=== PATIENT | male | born 1995 | race Two or more races ===

== ENCOUNTER 2020-10-05 07:23 | Emergency (ER) | payer SELFPAY ==
[~2020-10-05] VITALS: Ht 185.4 cm; Wt 108.7 kg
--- NOTE | 2020-10-05 07:58 | ED.ADGEN ---
General Adult EDM: Chief Complaint: ABDOMINAL PAIN HPI: HPI: Patient is a 25 year old male coming in for right-sided abdominal pain. Patient states that the pain started last night. Has had one episode of vomiting. Denies any diarrhea. States the pain is sharp and worse with movement. No other past medical history. Review of Systems: Review of Systems: All other systems within normal limits except for as noted in the HPI Current Medications: Current Medications Medications (Trade) Dose Ordered Sig/Radha Start Time Stop Time Status Last Admin Dose Admin Fentanyl Citrate (Fentanyl 2ml Vial) 75 mcg 1X ONCE 10/05/20 09:15 10/05/20 09:16 DC 10/05/20 09:24 75 MCG Info (CONTRAST GIVEN -- Rx MONITORING) 1 each PRN DAILY PRN 10/05/20 09:00 10/07/20 08:59 Iohexol (Omnipaque 300 Mg/ml) 75 ml 1X ONCE 10/05/20 09:00 10/05/20 09:01 DC 10/05/20 09:04 75 ML Ketorolac Tromethamine (Toradol 15mg Vial) 15 mg 1X ONCE 10/05/20 09:15 10/05/20 09:16 DC 10/05/20 09:25 15 MG Ondansetron HCl (Zofran) 4 mg 1X ONCE 10/05/20 09:15 10/05/20 09:16 DC 10/05/20 09:25 4 MG Allergies: Allergies: Allergies Coded Allergies Type Severity Reaction Last Updated Verified Penicillins Allergy Unknown 10/05/20 Yes Physical Exam: PE: Constitutional: Well developed, well nourished, no acute distress, non-toxic appearance. [] HENT: Normocephalic, atraumatic, bilateral external ears normal, nose normal. [] Eyes: PERRLA, conjunctiva normal, no discharge. [] Neck: No rigidity, supple, no stridor. [] Cardiovascular: Regular rate and rhythm, brisk cap refill [] Lungs & Thorax: Non labored symmetric respirations, no tachypnea or respiratory distress [] Abdomen: Soft, nondistended, right upper quadrant tenderness, guarding in right lower quadrant. Skin: Warm, dry, no erythema, no rash. [] Back: Unremarkable Extremities: No deformities, range of motion grossly intact, no lower extremity edema [] Neurologic: Alert and oriented X 3, no focal deficits noted. [] Psychologic: Affect normal, judgement normal, mood normal. [] Current Patient Data: Labs: Laboratory Tests Test 10/05/20 07:35 10/05/20 07:48 Urine Collection Type Unknown Urine Color Daniella Urine Clarity Clear Urine pH 6.0 (<5.0-8.0) Urine Specific [place] >=1.030 (1.000-1.030) Urine Protein Negative mg/dL (NEG-TRACE) Urine Glucose (UA) Negative mg/dL (NEG) Urine Ketones (Stick) Trace mg/dL (NEG) Urine Blood Negative (NEG) Urine Nitrite Negative (NEG) Urine Bilirubin Negative (NEG) Urine Urobilinogen Dipstick 0.2 mg/dL (0.2 mg/dL) Urine Leukocyte Esterase Negative (NEG) Urine RBC 0 /HPF (0-2) Urine WBC Occ /HPF (0-4) Urine Bacteria Few /HPF (0-FEW) Urine Mucus Marked /LPF White Blood Count 9.8 x10^3/uL (4.0-11.0) Red Blood Count 5.05 x10^6/uL (4.30-5.70) Hemoglobin 16.1 g/dL (13.0-17.5) Hematocrit 46.1 % (39.0-53.0) Mean Corpuscular Volume 91 fL (79-100) Mean Corpuscular Hemoglobin 32 pg (25-35) Mean Corpuscular Hemoglobin Concent 35 g/dL (31-37) Red Cell Distribution Width 12.9 % (11.5-14.5) Platelet Count 201 x10^3/uL (140-400) Neutrophils (%) (Auto) 71 % (31-73) Lymphocytes (%) (Auto) 19 % (24-48) L Monocytes (%) (Auto) 8 % (0-9) Eosinophils (%) (Auto) 2 % (0-3) Basophils (%) (Auto) 1 % (0-3) Neutrophils # (Auto) 6.9 x10^3/uL (1.8-7.7) Lymphocytes # (Auto) 1.9 x10^3/uL (1.0-4.8) Monocytes # (Auto) 0.8 x10^3/uL (0.0-1.1) Eosinophils # (Auto) 0.2 x10^3/uL (0.0-0.7) Basophils # (Auto) 0.1 x10^3/uL (0.0-0.2) Sodium Level 141 mmol/L (136-145) Potassium Level 4.0 mmol/L (3.5-5.1) Chloride Level 104 mmol/L (98-107) Carbon Dioxide Level 28 mmol/L (21-32) Anion Gap 9 (6-14) Blood Urea Nitrogen 16 mg/dL (8-26) Creatinine 1.0 mg/dL (0.7-1.3) Estimated GFR (Cockcroft-Gault) 92.6 BUN/Creatinine Ratio 16 (6-20) Glucose Level 110 mg/dL (70-99) H Calcium Level 9.3 mg/dL (8.5-10.1) Total Bilirubin 0.8 mg/dL (0.2-1.0) Aspartate Amino Transferase (AST) 47 U/L (15-37) H Alanine Aminotransferase (ALT) 96 U/L (16-63) H Alkaline Phosphatase 85 U/L (46-116) Total Protein 7.4 g/dL (6.4-8.2) Albumin 4.3 g/dL (3.4-5.0) Albumin/Globulin Ratio 1.4 (1.0-1.7) Lipase 54 U/L (73-393) L Laboratory Tests 10/05/20 07:48 Laboratory Tests 10/05/20 07:48 Vital Signs: Vital Signs Date Time Temp Pulse Resp B/P (MAP) Pulse Ox O2 Delivery O2 Flow Rate FiO2 10/05/20 09:24 98 Room Air 10/05/20 08:24 18 10/05/20 07:40 98.0 95 156/87 (110) 98.0 EKG: EKG: [] Heart Score: C/O Chest Pain: No Risk Factors: Risk Factors: DM, Current or recent (<one month) smoker, HTN, HLP, family history of CAD, obesity. Risk Scores: Score 0 - 3: 2.5% MACE over next 6 weeks - Discharge Home Score 4 - 6: 20.3% MACE over next 6 weeks - Admit for Clinical Observation Score 7 - 10: 72.7% MACE over next 6 weeks - Early Invasive Strategies Radiology/Procedures: Radiology/Procedures: [facility] [address] [place] [address] IMAGING REPORT Signed PATIENT: FRANCISCO HAHNUNT: [id number] : 1995 LOCATION: ER AGE: 25 SEX: M EXAM STATUS: REG ER ORD. PHYSICIAN: ANDREWS IRVIN MD REASON: right abd pain PROCEDURE: CT ABD PELV W/ IV CONTRST ONLY EXAM: Abdomen and pelvis CT with intravenous contrast. HISTORY: Pain. TECHNIQUE: Computed tomographic images of the abdomen and pelvis were obtained following the administration of intravenous contrast. Multiplanar reformatting was performed. *One or more of the following individualized dose reduction techniques were utilized for this examination: 1. Automated exposure control. 2. Adjustment of the mA and/or kV according to patient size. 3. Use of iterative reconstruction technique. COMPARISON: None. FINDINGS: Evaluation of the lower thorax demonstrates posterior dependent atelectasis. There is no infiltrate or pleural effusion. There is hepatic steatosis. The gallbladder, pancreas, spleen, adrenal glands and kidneys are unremarkable. There is no appendicitis. There is no bowel obstruction. There is no abnormal bowel wall thickening. The bladder is unremarkable. The aorta is normal in caliber. There is no lymphadenopathy. There is no suspicious osseous lesion. There is a transitional lumbosacral segment, considered a sacralized L5 segment given the number of nonrib-bearing vertebral segments. Based on this numbering system, there is grade 1 byron listhesis of L4 on L5. There is a posterior central disc protrusion superimposed on a disc bulge at this level, contributing to left foraminal and central canal stenosis. There are pars interarticularis defects at L2. IMPRESSION: No acute abdominal or pelvic finding. Electronically signed by: Sridevi Saunders MD (10/05/2020 9:39 AM) [id number] DICTATED and SIGNED BY: SRIDEVI SAUNDERS MD DATE: 10/05/20 [id number] [] Course & Med Decision Making: Course & Med Decision Making Pertinent Labs and Imaging studies reviewed. (See chart for details) [] Dragon Disclaimer: Dragmera Disclaimer: This electronic medical record was generated, in whole or in part, using a voice recognition dictation system. Departure Departure Impression: Primary Impression: RLQ abdominal pain Disposition: HOME / SELF CARE / HOMELESS Condition: STABLE Patient Instructions: Abdominal Pain, Possible Early Appendicitis ANDREWS IRVIN MD Oct 05, 2020 07:58
[2020-10-05] MEDS ORDERED: ONDANSETRON PF 4 MG/2 ML VIAL. IVP ONE ×2 (08:00→09:15)
[2020-10-05] MEDS ORDERED: fentaNYL PF VIAL 100 MCG/2 ML VIAL IVP ONE ×2 (08:00→09:15)
[2020-10-05 08:05] LABS: BASO # 0.1 x10^3/uL (0.0-0.2); BASO % 1 % (0-3); EOS # 0.2 x10^3/uL (0.0-0.7); EOS % 2 % (0-3); HEMATOCRIT 46.1 % (39.0-53.0); HEMOGLOBIN 16.1 g/dL (13.0-17.5); LYMPH # 1.9 x10^3/uL (1.0-4.8); LYMPH % 19 % (24-48); MEAN CORPUSCULAR HEMOGLOBIN 32 pg (25-35); MEAN CORPUSCULAR HGB CONC 35 g/dL (31-37); MEAN CORPUSCULAR VOLUME 91 fL (79-100); MONO # 0.8 x10^3/uL (0.0-1.1); MONO % 8 % (0-9); NEUT # 6.9 x10^3/uL (1.8-7.7); NEUT % 71 % (31-73); PLATELET COUNT 201 x10^3/uL (140-400); RED BLOOD COUNT 5.05 x10^6/uL (4.30-5.70); RED CELL DISTRIBUTION WIDTH 12.9 % (11.5-14.5); WHITE BLOOD COUNT 9.8 x10^3/uL (4.0-11.0)
[2020-10-05 08:06] LABS: BILIRUBIN,URINE NEGATIVE (NEG); CLARITY,URINE CLEAR; COLOR,URINE AMBER; NITRITE,URINE NEGATIVE (NEG); PROTEIN,URINE NEGATIVE (NEG-TRACE); UROBILINOGEN,URINE 0.2 mg/dL (0.2 mg/dL)
[2020-10-05 08:14] LABS: BACTERIA,URINE FEW /HPF (0-FEW); RBC,URINE 0 /HPF (0-2); WBC,URINE OCC /HPF (0-4)
[2020-10-05 08:18] LABS: CALCIUM 9.3 mg/dL (8.5-10.1); GFR 92.6
[2020-10-05 08:23] LABS: ALBUMIN 4.3 g/dL (3.4-5.0); ALBUMIN/GLOBULIN RATIO 1.4 (1.0-1.7); TOTAL BILIRUBIN 0.8 mg/dL (0.2-1.0); TOTAL PROTEIN 7.4 g/dL (6.4-8.2)
[2020-10-05] MEDS ORDERED: IOHEXOL 300 MG/ML 100ML VIAL. IV ONE (09:00)
[2020-10-05] MEDS ORDERED: CONTRAST GIVEN. MC PRN (09:00)
[2020-10-05] MEDS ORDERED: KETOROLAC 15 MG/ML VIAL. IVP ONE (09:15)
--- NOTE | 2020-10-05 09:41 | RAD ---
EXAM: Abdomen and pelvis CT with intravenous contrast. HISTORY: Pain. TECHNIQUE: Computed tomographic images of the abdomen and pelvis were obtained following the administ ration of intravenous contrast. Multiplanar reformatting was performed. *One or more of the following individualized dose reduction techniques were utilized for this examina tion: 1. Automated exposure control. 2. Adjustment of the mA and/or kV according to patient size. 3. Use of iterative reconstruction technique. COMPARISON: None. FINDINGS: Evaluation of the lower thorax demonstrates posterior dependent atelectasis. There is no in filtrate or pleural effusion. There is hepatic steatosis. The gallbladder, pancreas, spleen, adrenal glands and kidneys are unremarkable. There is no appendicitis. There is no bowel obstruction. There i s no abnormal bowel wall thickening. The bladder is unremarkable. The aorta is normal in caliber. The re is no lymphadenopathy. There is no suspicious osseous lesion. There is a transitional lumbosacral segment, considered a sacr alized L5 segment given the number of nonrib-bearing vertebral segments. Based on this numbering syst em, there is grade 1 anterolisthesis of L4 on L5. There is a posterior central disc protrusion superi mposed on a disc bulge at this level, contributing to left foraminal and central canal stenosis. Ther e are pars interarticularis defects at L2. IMPRESSION: No acute abdominal or pelvic finding. Electronically signed by: Sridevi Saunders MD (10/05/2020 9:39 AM) [id number]
[2020-10-05 10:38] VITALS: BP 142/75
[2020-10-08] MEDS ORDERED: FAMO-63 PO (15:10)
[2020-10-08] MEDS ORDERED: CALC1TAB21 PO (15:10)
[2020-10-08] MEDS ORDERED: DICY10CA3 PO (15:10)
[2020-10-08] MEDS ORDERED: PANT40TA77 PO (15:36)
[2020-10-08] MEDS ORDERED: CLAR-7 PO (15:36)
[2020-10-08] MEDS ORDERED: METR-34 PO (15:36)
== END 2020-10-05 10:45 | disposition home or self-care (01) ==
LOC: ER 07:23
DX: R10.31 Right lower quadrant pain (principal); R11.10 Vomiting, unspecified; Z88.0 Allergy status to penicillin
CPT/HCPCS: 36415; 74177; 80053; 81001; 83690; 85025; 96374; 96375; 96376; 99285; J1885; J2405; J3010; Q9967

== ENCOUNTER 2020-10-07 21:27 | Observation (INO) | payer SELFPAY ==
[~2020-10-07] VITALS: Ht 185.4 cm; Wt 107.7 kg
[2020-10-07] MEDS ORDERED: ONDANSETRON PF 4 MG/2 ML VIAL. IVP ONE (23:30)
[2020-10-07] MEDS ORDERED: IV NORMAL SALINE 1000ML BAG 1,000 ML IV SCH (23:30)
[2020-10-07] MEDS ORDERED: HYDROmorphone 2 MG/ML VIAL IVP ONE (23:30)
[2020-10-07 23:32] LABS: BASO % 1 % (0-3); EOS # 0.1 x10^3/uL (0.0-0.7); EOS % 1 % (0-3); HEMATOCRIT 42.1 % (39.0-53.0); HEMOGLOBIN 14.9 g/dL (13.0-17.5); LYMPH # 1.9 x10^3/uL (1.0-4.8); LYMPH % 24 % (24-48); MEAN CORPUSCULAR HEMOGLOBIN 32 pg (25-35); MEAN CORPUSCULAR HGB CONC 35 g/dL (31-37); MEAN CORPUSCULAR VOLUME 91 fL (79-100); MONO # 0.9 x10^3/uL (0.0-1.1); MONO % 11 % (0-9); NEUT # 5.2 x10^3/uL (1.8-7.7); NEUT % 64 % (31-73); PLATELET COUNT 182 x10^3/uL (140-400); RED CELL DISTRIBUTION WIDTH 12.7 % (11.5-14.5)
[2020-10-07] MEDS ORDERED: IOHEXOL 300 MG/ML 100ML VIAL. IV ONE (23:45)
[2020-10-07] MEDS ORDERED: CONTRAST GIVEN. MC PRN (23:45)
[2020-10-07 23:46] LABS: CALCIUM 8.7 mg/dL (8.5-10.1); CREATININE 1.2 mg/dL (0.7-1.3); POTASSIUM 3.7 mmol/L (3.5-5.1)
[2020-10-07 23:52] LABS: ALBUMIN 4.4 g/dL (3.4-5.0); DIRECT BILIRUBIN 0.2 mg/dL (0.0-0.2); TOTAL BILIRUBIN 0.9 mg/dL (0.2-1.0); TOTAL PROTEIN 7.3 g/dL (6.4-8.2)
--- NOTE | 2020-10-08 00:17 | EKG ---
[facility] [address] [place] [address] Test Date: 2020-10-07 Test Time: 23:46:36 Pat Name: TATIANA HAHN Department: Room: Gender: M Latent Fingerprint Examiner: : 1995 Requested By: GERALDO JAMES Order Number: [id number] Reading MD: Measurements Intervals [place] Rate: 68 P: 31 [place]: 162 QRS: 62 QRSD: 92 T: 23 QT: 424 QTc: 451 Interpretive Statements SINUS RHYTHM OTHERWISE NORMAL ECG RI6.02 Compared to ECG 10/07/2020 23:44:12 No significant changes
--- NOTE | 2020-10-08 01:24 | RAD ---
US ABDOMEN LIMITED History: Reason: ruq pain / Spl. Instructions: / History: Comparison: None. Technique: Transabdominal ultrasound images are obtained of the right upper quadrant. Findings: Liver is increased in echogenicity. Right hepatic lobe measures 12 cm. Portal flow is hepatopedal. Gallbladder has an unremarkable appearance. Common bile duct measures 3 mm in diameter. Visualized pancreas not well seen due to overlying bowel gas. The right kidney measures 10.3 x 5.8 x 5.2 cm. No hydronephrosis. Visualized portions of the aorta and IVC have normal caliber. IMPRESSION: 1. Increased hepatic echotexture, may indicate steatosis. Electronically signed by: Freddy Belle DO (10/08/2020 1:22 AM) [facility]
--- NOTE | 2020-10-08 01:28 | RAD ---
CT ABDOMEN+PELVIS W History: Reason: ruq pain, here 2 days agp concern for appey / Spl. Instructions: / History: Technique: After the administration of intravenous contrast, CT imaging was performed of the abdomen and pelvis. Multiplanar images are reviewed. Exposure: One or more of the following individualized dose reduction techniques were utilized for thi s examination: 1. Automated exposure control 2. Adjustment of the mA and/or kV according to patient size 3. Use of iterative reconstruction technique. Comparison: October 05, 2020 Findings: Lower chest: No consolidation or pleural effusion. Abdomen and pelvis: Mild hepatic steatosis. The spleen, adrenal glands, pancreas and gallbladder are unremarkable. No biliary ductal dilatation. No hydronephrosis. No renal calculi. Normal urinary bladd er. Normal appendix. No evidence of bowel obstruction. No pathologic lymphadenopathy. No ascites. Bones: Transitional lumbosacral anatomy with sacralization of L5. L2 bilateral pars defects, unchange d. No anterolisthesis. Impression: 1. No acute abdominal or pelvic pathology. Electronically signed by: Freddy Belle DO (10/08/2020 1:26 AM) [facility]
--- NOTE | 2020-10-08 02:05 | PHYS DOC ---
Past Medical History Past Medical History: No Pertinent History Past Surgical History: No Surgical History Smoking Status: Never Smoker Alcohol Use: Heavy General Adult EDM: Chief Complaint: ABDOMINAL PAIN HPI: HPI: 25 yo M presents to the ED as a bounce back, complaints of right upper quadrant, "burning" abdominal pain. Review of Systems: Review of Systems: Constitutional: Denies fever or chills. [] Eyes: Denies change in visual acuity. [] HENT: Denies nasal congestion or sore throat. [] Respiratory: Denies cough or shortness of breath. [] Cardiovascular: Denies chest pain or edema. [] GI: Denies nausea, vomiting, bloody stools or diarrhea. [] : Denies dysuria or hematuria Musculoskeletal: Denies CVA tenderness or joint pain. [] Integument: Denies rash or diaphoresis Neurologic: Denies headache, focal weakness or sensory changes. [] Endocrine: Denies polyuria or polydipsia. [] Lymphatic: Denies swollen glands. [] Psychiatric: Denies depression or anxiety. [] Heart Score: C/O Chest Pain: No Risk Factors: Risk Factors: DM, Current or recent (<one month) smoker, HTN, HLP, family history of CAD, obesity. Risk Scores: Score 0 - 3: 2.5% MACE over next 6 weeks - Discharge Home Score 4 - 6: 20.3% MACE over next 6 weeks - Admit for Clinical Observation Score 7 - 10: 72.7% MACE over next 6 weeks - Early Invasive Strategies Current Medications: Current Medications Medications (Trade) Dose Ordered Sig/Radha Start Time Stop Time Status Last Admin Dose Admin Hydromorphone HCl (Dilaudid) 1 mg 1X ONCE 10/07/20 23:30 10/07/20 23:31 DC 10/07/20 23:37 1 MG Info (CONTRAST GIVEN -- Rx MONITORING) 1 each PRN DAILY PRN 10/07/20 23:45 10/09/20 23:44 Iohexol (Omnipaque 300 Mg/ml) 75 ml 1X ONCE 10/07/20 23:45 10/07/20 23:46 DC 10/07/20 00:45 75 ML Ondansetron HCl (Zofran) 4 mg 1X ONCE 10/07/20 23:30 10/07/20 23:31 DC 10/07/20 23:37 4 MG Sodium Chloride 1,000 ml @ 100 mls/hr Q10H 10/07/20 23:30 10/08/20 09:29 10/07/20 23:37 100 MLS/HR Allergies: Allergies: Allergies Coded Allergies Type Severity Reaction Last Updated Verified Penicillins Allergy Unknown 10/05/20 Yes Physical Exam: PE: Constitutional: appears uncomfortable but no extremis, HENT: Normocephalic, atraumatic, Eyes: EOMI, conjunctiva normal, no discharge. Neck: Normal range of motion, supple, Cardiovascular: S1/2 present, regular rhythm Lungs & Thorax: Speaking in full sentences, bilateral equal chest rise, no tachypnea or increased work of breathing Abdomen: soft, +RUQ ttp, no rigidity or guarding Skin: Warm, dry, Back: No tenderness, no CVA tenderness. [] Extremities: No tenderness, no cyanosis, Neurologic: Alert and oriented X 3, no focal deficits noted. [] Psychologic: Affect normal, calm mood Current Patient Data: Labs: Laboratory Tests Test 10/07/20 23:00 White Blood Count 8.0 x10^3/uL (4.0-11.0) Red Blood Count 4.60 x10^6/uL (4.30-5.70) Hemoglobin 14.9 g/dL (13.0-17.5) Hematocrit 42.1 % (39.0-53.0) Mean Corpuscular Volume 91 fL (79-100) Mean Corpuscular Hemoglobin 32 pg (25-35) Mean Corpuscular Hemoglobin Concent 35 g/dL (31-37) Red Cell Distribution Width 12.7 % (11.5-14.5) Platelet Count 182 x10^3/uL (140-400) Neutrophils (%) (Auto) 64 % (31-73) Lymphocytes (%) (Auto) 24 % (24-48) Monocytes (%) (Auto) 11 % (0-9) H Eosinophils (%) (Auto) 1 % (0-3) Basophils (%) (Auto) 1 % (0-3) Neutrophils # (Auto) 5.2 x10^3/uL (1.8-7.7) Lymphocytes # (Auto) 1.9 x10^3/uL (1.0-4.8) Monocytes # (Auto) 0.9 x10^3/uL (0.0-1.1) Eosinophils # (Auto) 0.1 x10^3/uL (0.0-0.7) Basophils # (Auto) 0.0 x10^3/uL (0.0-0.2) Sodium Level 142 mmol/L (136-145) Potassium Level 3.7 mmol/L (3.5-5.1) Chloride Level 105 mmol/L (98-107) Carbon Dioxide Level 30 mmol/L (21-32) Anion Gap 7 (6-14) Blood Urea Nitrogen 20 mg/dL (8-26) Creatinine 1.2 mg/dL (0.7-1.3) Estimated GFR (Cockcroft-Gault) 75.0 Glucose Level 94 mg/dL (70-99) Calcium Level 8.7 mg/dL (8.5-10.1) Total Bilirubin 0.9 mg/dL (0.2-1.0) Direct Bilirubin 0.2 mg/dL (0.0-0.2) Aspartate Amino Transferase (AST) 50 U/L (15-37) H Alanine Aminotransferase (ALT) 93 U/L (16-63) H Alkaline Phosphatase 72 U/L (46-116) Lactate Dehydrogenase 215 U/L (85-227) Creatine Kinase 679 U/L (39-308) H Troponin I Quantitative < 0.017 ng/mL (0.000-0.055) Total Protein 7.3 g/dL (6.4-8.2) Albumin 4.4 g/dL (3.4-5.0) Lipase 70 U/L (73-393) L Laboratory Tests 10/07/20 23:00 Laboratory Tests 10/07/20 23:00 Vital Signs: Vital Signs Date Time Temp Pulse Resp B/P (MAP) Pulse Ox O2 Delivery O2 Flow Rate FiO2 10/07/20 23:37 20 99 Nasal Cannula EKG: EKG: Sinus rhythm at 68 bpm, no axis deviation, QTC 451, pathologic Q waves in 2, 3, aVF, nonpathologic Q waves lead V1, V4, V5, V6 -HCOM?, no obvious ST elevations or ST depressions, questionable hyperacute T waves in precordial leads, no prior ekg Radiology/Procedures: Radiology/Procedures: IMAGING REPORT Signed PATIENT: FRANCISCO HAHNUNT: [id number] : 1995 LOCATION: ER AGE: 25 SEX: M EXAM STATUS: REG ER ORD. PHYSICIAN: GERALDO JAMES DO REASON: ruq pain, here 2 days agp concern for appey PROCEDURE: CT ABD PELV W/ IV CONTRST ONLY CT ABDOMEN+PELVIS W History: Reason: ruq pain, here 2 days agp concern for appey / Spl. Instructions: / History: Technique: After the administration of intravenous contrast, CT imaging was performed of the abdomen and pelvis. Multiplanar images are reviewed. Exposure: One or more of the following individualized dose reduction techniques were utilized for this examination: 1. Automated exposure control 2. Adjustment of the mA and/or kV according to patient size 3. Use of iterative reconstruction technique. Comparison: October 05, 2020 Findings: Lower chest: No consolidation or pleural effusion. Abdomen and pelvis: Mild hepatic steatosis. The spleen, adrenal glands, pancreas and gallbladder are unremarkable. No biliary ductal dilatation. No hydronephros is. No renal calculi. Normal urinary bladder. Normal appendix. No evidence of bowel obstruction. No pathologic lymphadenopathy. No ascites. 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 No anterolisthesis. Impression: 1. No acute abdominal or pelvic pathology. Electronically signed by: Freddy Belle DO (10/08/2020 1:26 AM) [facility] DICTATED and SIGNED BY: FREDDY BELLE DO DATE: 10/08/20 [id number] IMAGING REPORT Signed PATIENT: FRANCISCO HAHNUNT: [id number] : 1995 LOCATION: ER AGE: 25 SEX: M EXAM STATUS: REG ER ORD. PHYSICIAN: GERALDO JAMES DO REASON: ruq pain PROCEDURE: ABDOMEN LTD US ABDOMEN LIMITED History: Reason: ruq pain / Spl. Instructions: / History: Comparison: None. Technique: Transabdominal ultrasound images are obtained of the right upper quadrant. Findings: Liver is increased in echogenicity. Right hepatic lobe measures 12 cm. Portal flow is hepatopedal. Gallbladder has an unremarkable appearance. Common bile duct measures 3 mm in diameter. Visualized pancreas not well seen due to overlying bowel gas. The right kidney measures 10.3 x 5.8 x 5.2 cm. No hydronephrosis. Visualized portions of the aorta and IVC have normal caliber. IMPRESSION: 1. Increased hepatic echotexture, may indicate steatosis. Electronically signed by: Freddy Belle DO (10/08/2020 1:22 AM) [facility] DICTATED and SIGNED BY: FREDDY BELLE DO DATE: 10/08/20 [id number] Course & Med Decision Making: Course & Med Decision Making Pertinent Labs and Imaging studies reviewed. (See chart for details) Concern for intractable abdominal pain located in the right upper quadrant with mildly elevated liver function tests and CK, normal renal function. Patient hem odynamically stable, no pain relief with opioids or NSAIDs. EKG with q waves - no obvious alyssia/std. Will admit for further medical management, repeat troponin pending with cardiology consult placed. Patient stable at time of admission and agrees with this plan. I have spoken with the patient and/or caregivers. I have explained the patient's condition, diagnosis and treatment plan based on the information available to me at this time. I have answered the patient's and/or caregivers questions and answered any concerns. The patient and/or caregivers have as good an understanding of the patient's diagnosis, condition and treatment plan as can be expected at this point. The patient has been stabilized within the capability of the emergency department. The patient will be transported for further care and management or will be moved to an observation or inpatient service. I have communicated with the staff or medical practitioner taking over this patient's care. Catrina Disclaimer: Catrina Disclaimer: This electronic medical record was generated, in whole or in part, using a voice recognition dictation system. Departure Departure Impression: Primary Impression: Intractable abdominal pain Additional Impressions: Elevated liver function tests Elevated CK EKG abnormalities Disposition: ADMITTED INPATIENT Admitting Physician: GRAHAM (Dr. Aragon) Condition: STABLE Referrals: NO PCP (PCP) Scripts Metronidazole (METRONIDAZOLE) 500 Mg Tablet 1 TAB PO TID for H pylori for 14 Days, #42 TAB 0 Refills Prov: ERICKA ARAGON MD 6/11/21 Pantoprazole Sodium (PROTONIX ) 40 Mg Tablet.dr 40 MG PO BIDAC for H. Pylori for 14 Days, #28 TAB Prov: ERICKA ARAGON MD 10/08/20 Clarithromycin (CLARITHROMYCIN) 500 Mg Tablet 1 TAB PO BID for H. pylori for 14 Days, #28 TAB Prov: ERICKA ARAGON MD 10/08/20 Dicyclomine Hcl (DICYCLOMINE HCL) 10 Mg Capsule 10 MG PO PRN Q4HRS PRN for ABDOMINAL PAIN for 30 Days, #60 CAP 3 Refills Prov: ERICKA ARAGON MD 10/08/20 Calcium Carbonate/Simethicone (MAALOX ADVANCED TAB CHEW) 1 Each Tab.chew 1 EACH PO PRN BID PRN for CONSTIPATION for 30 Days, #30 TAB.CHEW Prov: ERICKA ARAGON MD 10/08/20 Famotidine (PEPCID) 20 Mg Tablet 20 MG PO BID for ACID reflux for 30 Days, #60 TAB Prov: ERICKA ARAGON MD 10/08/20 GERALDO JAMES DO Oct 08, 2020 02:05
[2020-10-08 02:29] LABS: BILIRUBIN,URINE NEGATIVE (NEG); CLARITY,URINE CLEAR; COLOR,URINE YELLOW; NITRITE,URINE NEGATIVE (NEG); PH,URINE 6.5 (<5.0-8.0); PROTEIN,URINE NEGATIVE (NEG-TRACE)
[2020-10-08 02:35] LABS: AMPHETAMINE/METHAMPHETAMINE NEG (NEG); BARBITURATES NEG (NEG); BENZODIAZEPINES NEG (NEG); CANNABINOIDS NEG (NEG); COCAINE NEG (NEG); METHADONE NEG (NEG); OPIATES NEG (NEG); PHENCYCLIDINE NEG (NEG)
[2020-10-08 02:39] LABS: BACTERIA,URINE 0 /HPF (0-FEW); RBC,URINE 0 /HPF (0-2); WBC,URINE 0 /HPF (0-4)
[2020-10-08] MEDS ORDERED: KETOROLAC 15 MG/ML VIAL. IVP ONE (03:15)
[2020-10-08 05:34] VITALS: BP 125/75
[2020-10-08] MEDS: DICYCLOMINE HCL 10 MG CAPSULE PO PRN ×2 (06:25→09:18)
[2020-10-08 07:00] VITALS: BP 118/79
--- NOTE | 2020-10-08 07:00 | PDOC1 ---
History and Physical Date of Admission Date of Admission DATE: 10/08/20 TIME: 06:46 Identification/Chief Complaint Chief Complaint Abdominal pain Source Source: Chart review, Patient History of Present Illness History of Present Illness Mr Patricio is a 25 yo male lao speaking only who present to ED c/o right side abdominal pain and epigastric pain. In ED noted has been constipated early satiety and some right upper quadrant epigastric pain initially improved with the eating and then pain comes afterwards. He does drink moderately heavily 12 beers. No chest pain, SOA. Had a little nausea but no vomiting. No diarrhea and no fever or chills. No history of heart disease heart disease. He does not take any home medications. No recent falls or injury. He is up-to-date on influenza vaccinations and hepatitis A and B. No family history of alpha-1 antitrypsin or iron overload disorders. ED physician concerned about q waves in inferior leads of the EKG. CT abdomen pelvis no acute findings but hepatic steatosis. Right upper quadrant ultrasound with fatty liver. Labs with WBC 8, Hb 14.9, platelets 182, LDH 215, troponin 0, CK 679, AST 50, ALT 93, NA 142, K3.7, BUN 20, CR 1.2, glucose 94. Admitted for observation with cardiology consultation. Past Medical History Cardiovascular: No pertinent hx Past Surgical History Past Surgical History: No pertinent history Family History Family History: High Cholestrol Social History Smoke: No ALCOHOL: heavy Drugs: None Current Problem List Problem List Problems Medical Problems: (1) EKG abnormalities Status: Acute (2) Elevated CK Status: Acute (3) Elevated liver function tests Status: Acute (4) Intractable abdominal pain Status: Acute Current Medications Current Medications Current Medications Sodium Chloride 1,000 ml @ 100 mls/hr Q10H IV Last administered on 10/07/20at 23:37; Start 10/07/20 at 23:30; Stop 10/08/20 at 09:29 Hydromorphone HCl (Dilaudid) 1 mg 1X ONCE IVP Last administered on 10/07/20at 23:37; Start 10/07/20 at 23:30; Stop 10/07/20 at 23:31; Status DC Ondansetron HCl (Zofran) 4 mg 1X ONCE IVP Last administered on 10/07/20at 23:37; Start 10/07/20 at 23:30; Stop 10/07/20 at 23:31; Status DC Iohexol (Omnipaque 300 Mg/ml) 75 ml 1X ONCE IV Last administered on 10/07/20at 00:45; Start 10/07/20 at 23:45; Stop 10/07/20 at 23:46; Status DC Info (CONTRAST GIVEN -- Rx MONITORING) 1 each PRN DAILY PRN MC SEE COMMENTS; Start 10/07/20 at 23:45; Stop 10/09/20 at 23:44 Ketorolac Tromethamine (Toradol 15mg Vial) 15 mg 1X ONCE IVP Last administered on 10/08/20at 04:14; Start 10/08/20 at 03:15; Stop 10/08/20 at 03:16; Status DC Dicyclomine HCl (Bentyl) 10 mg PRN Q4HRS PRN PO ABDOMINAL PAIN Last administered on 10/08/20at 06:25; Start 10/08/20 at 06:15 Allergies Allergies: Coded Allergies: Penicillins (Verified Allergy, Unknown, 10/05/20) ROS General: YES: Fatigue, Malaise; No: Chills, Night Sweats, Appetite, Other PSYCHOLOGICAL ROS: No: Anxiety, Behavioral Disorder, Concentration difficultie, Decreased libido, Depression, Disorientation, Hallucinations, Hostility, Irritablity, Memory difficulties, Mood Swings, Obsessive thoughts, Physical abuse, Sexual abuse, Sleep disturbances, Suicidal ideation, Other Eyes: No Blurry vision, No Decreased vision, No Double vision, No Dry eyes, No Excessive tearing, No Eye Pain, No Itchy Eyes, No Loss of vision, No Photophobia, No Scotomata, No Uses contacts, No Uses glasses, No Other HEENT: No: Heacaches, Visual Changes, Hearing change, Nasal congestion, Nasal discharge, Oral lesions, Sinus pain, Sore Throat, Epistaxis, Sneezing, Snoring, Tinnitus, Vertigo, Vocal changes, Other ALLERGY AND IMMUNOLOGY: No: Hives, Insect Bite Sensitivity, Itchy/Watery Eyes, Nasal Congestion, Post Nasal Drip, Seasonal Allergies, Other Hematological and Lymphatic: No: Bleeding Problems, Blood Clots, Blood Transfusions, Brusing, Night Sweats, Pallor, Swollen Lymph Nodes, Other ENDOCRINE: No: Breast Changes, Galactorrhea, Hair Pattern Changes, Hot Flashes, Malaise/lethargy, Mood Swings, Palpitations, Polydipsia/polyuria, Skin Changes, Temperature Intolerance, Unexpected Weight Changes, Other Breast: No New/Changing Breast Lumps, No Nipple changes, No Nipple discharge, No Other Respiratory: No: Cough, Hemoptysis, Orthopnea, Pleuritic Pain, Shortness of breath, SOB with excertion, Sputum Changes, Stridor, Tachypnea, Wheezing, Other Cardiovascular: No Chest Pain, No Palpitations, No Orthopnea, No Paroxysmal Noc. Dyspnea, No Edema, No Lt Headedness, No Other Gastrointestinal: Yes Nausea, Yes Abdominal Pain; No Vomiting, No Diarrhea, No Constipation, No Melena, No Hematochezia, No Other Genitourinary: No Dysuria, No Frequency, No Incontinence, No Hematuria, No Retention, No Discharge, No Urgency, No Pain, No Flank Pain, No Other, No , No , No , No , No , No , No Musculoskeletal: No Gait Disturbance, No Joint Pain, No Joint Stiffness, No Joint Swelling, No Muscle Pain, No Muscular Weakness, No Pain In:, No Swelling In:, No Other Neurological: No Behavorial Changes, No Bowel/Bladder ControlChng, No Confusion, No Dizziness, No Gait Disturbance, No Headaches, No Impaired Coord/balance, No Memory Loss, No Numbness/Tingling, No Seizures, No Speech Problems, No Tremors, No Visual Changes, No Weakness, No Other Skin: No Dry Skin, No Eczema, No Hair Changes, No Lumps, No Mole Changes, No Mottling, No Nail Changes, No Pruritus, No Rash, No Skin Lesion Changes, No Other, No Acne Physical Exam General: Alert, Oriented X3, Cooperative, No acute distress HEENT: Atraumatic, PERRLA, EOMI, Mucous membr. moist/pink Lungs: Clear to auscultation, Normal air movement Heart: S1S2, RRR, no thrills, no rubs, no gallops, no murmurs Abdomen: Normal bowel sounds, Soft, No hepatosplenomegaly, No masses, Other (epigastric tenderness) Rectal Exam: not examined Extremities: No clubbing, No cyanosis, No edema, Normal pulses, No tenderness/swelling Skin: No rashes, No breakdown, No significant lesion Neuro: Normal gait, Normal speech, Strength at 5/5 X4 ext, Normal tone, Sensation intact, Cranial nerves 3-12 NL, Reflexes 2+ Psych/Mental Status: Mental status NL, Mood NL Vitals Vitals Vital Signs Date Time Temp Pulse Resp B/P (MAP) Pulse Ox O2 Delivery O2 Flow Rate FiO2 10/08/20 05:34 98.0 76 16 125/75 (92) 100 Room Air 98.0 Labs Labs Laboratory Tests Test 10/07/20 23:00 10/08/20 02:20 10/08/20 05:04 White Blood Count 8.0 x10^3/uL (4.0-11.0) Red Blood Count 4.60 x10^6/uL (4.30-5.70) Hemoglobin 14.9 g/dL (13.0-17.5) Hematocrit 42.1 % (39.0-53.0) Mean Corpuscular Volume 91 fL (79-100) Mean Corpuscular Hemoglobin 32 pg (25-35) Mean Corpuscular Hemoglobin Concent 35 g/dL (31-37) Red Cell Distribution Width 12.7 % (11.5-14.5) Platelet Count 182 x10^3/uL (140-400) Neutrophils (%) (Auto) 64 % (31-73) Lymphocytes (%) (Auto) 24 % (24-48) Monocytes (%) (Auto) 11 % (0-9) Eosinophils (%) (Auto) 1 % (0-3) Basophils (%) (Auto) 1 % (0-3) Neutrophils # (Auto) 5.2 x10^3/uL (1.8-7.7) Lymphocytes # (Auto) 1.9 x10^3/uL (1.0-4.8) Monocytes # (Auto) 0.9 x10^3/uL (0.0-1.1) Eosinophils # (Auto) 0.1 x10^3/uL (0.0-0.7) Basophils # (Auto) 0.0 x10^3/uL (0.0-0.2) Sodium Level 142 mmol/L (136-145) Potassium Level 3.7 mmol/L (3.5-5.1) Chloride Level 105 mmol/L (98-107) Carbon Dioxide Level 30 mmol/L (21-32) Anion Gap 7 (6-14) Blood Urea Nitrogen 20 mg/dL (8-26) Creatinine 1.2 mg/dL (0.7-1.3) Estimated GFR (Cockcroft-Gault) 75.0 Glucose Level 94 mg/dL (70-99) Calcium Level 8.7 mg/dL (8.5-10.1) Total Bilirubin 0.9 mg/dL (0.2-1.0) Direct Bilirubin 0.2 mg/dL (0.0-0.2) Aspartate Amino Transf (AST/SGOT) 50 U/L (15-37) Alanine Aminotransferase (ALT/SGPT) 93 U/L (16-63) Alkaline Phosphatase 72 U/L (46-116) Lactate Dehydrogenase 215 U/L (85-227) Creatine Kinase 679 U/L (39-308) Troponin I Quantitative < 0.017 ng/mL (0.000-0.055) < 0.017 ng/mL (0.000-0.055) Total Protein 7.3 g/dL (6.4-8.2) Albumin 4.4 g/dL (3.4-5.0) Lipase 70 U/L (73-393) Urine Collection Type Unknown Urine Color Yellow Urine Clarity Clear Urine pH 6.5 (<5.0-8.0) Urine Specific [place] >=1.030 (1.000-1.030) Urine Protein Negative mg/dL (NEG-TRACE) Urine Glucose (UA) Negative mg/dL (NEG) Urine Ketones (Stick) 40 mg/dL (NEG) Urine Blood Negative (NEG) Urine Nitrite Negative (NEG) Urine Bilirubin Negative (NEG) Urine Urobilinogen Dipstick 1.0 mg/dL (0.2 mg/dL) Urine Leukocyte Esterase Negative (NEG) Urine RBC 0 /HPF (0-2) Urine WBC 0 /HPF (0-4) Urine Squamous Epithelial Cells Occ /LPF Urine Bacteria 0 /HPF (0-FEW) Urine Opiates Screen Neg (NEG) Urine Methadone Screen Neg (NEG) Urine Barbiturates Neg (NEG) Urine Phencyclidine Screen Neg (NEG) Urine Amphetamine/Methamphetamine Neg (NEG) Urine Benzodiazepines Screen Neg (NEG) Urine Cocaine Screen Neg (NEG) Urine Cannabinoids Screen Neg (NEG) Urine Ethyl Alcohol Neg (NEG) Laboratory Tests Test 10/07/20 23:00 10/08/20 02:20 10/08/20 05:04 White Blood Count 8.0 x10^3/uL (4.0-11.0) Red Blood Count 4.60 x10^6/uL (4.30-5.70) Hemoglobin 14.9 g/dL (13.0-17.5) Hematocrit 42.1 % (39.0-53.0) Mean Corpuscular Volume 91 fL (79-100) Mean Corpuscular Hemoglobin 32 pg (25-35) Mean Corpuscular Hemoglobin Concent 35 g/dL (31-37) Red Cell Distribution Width 12.7 % (11.5-14.5) Platelet Count 182 x10^3/uL (140-400) Neutrophils (%) (Auto) 64 % (31-73) Lymphocytes (%) (Auto) 24 % (24-48) Monocytes (%) (Auto) 11 % (0-9) Eosinophils (%) (Auto) 1 % (0-3) Basophils (%) (Auto) 1 % (0-3) Neutrophils # (Auto) 5.2 x10^3/uL (1.8-7.7) Lymphocytes # (Auto) 1.9 x10^3/uL (1.0-4.8) Monocytes # (Auto) 0.9 x10^3/uL (0.0-1.1) Eosinophils # (Auto) 0.1 x10^3/uL (0.0-0.7) Basophils # (Auto) 0.0 x10^3/uL (0.0-0.2) Sodium Level 142 mmol/L (136-145) Potassium Level 3.7 mmol/L (3.5-5.1) Chloride Level 105 mmol/L (98-107) Carbon Dioxide Level 30 mmol/L (21-32) Anion Gap 7 (6-14) Blood Urea Nitrogen 20 mg/dL (8-26) Creatinine 1.2 mg/dL (0.7-1.3) Estimated GFR (Cockcroft-Gault) 75.0 Glucose Level 94 mg/dL (70-99) Calcium Level 8.7 mg/dL (8.5-10.1) Total Bilirubin 0.9 mg/dL (0.2-1.0) Direct Bilirubin 0.2 mg/dL (0.0-0.2) Aspartate Amino Transf (AST/SGOT) 50 U/L (15-37) Alanine Aminotransferase (ALT/SGPT) 93 U/L (16-63) Alkaline Phosphatase 72 U/L (46-116) Lactate Dehydrogenase 215 U/L (85-227) Creatine Kinase 679 U/L (39-308) Troponin I Quantitative < 0.017 ng/mL (0.000-0.055) < 0.017 ng/mL (0.000-0.055) Total Protein 7.3 g/dL (6.4-8.2) Albumin 4.4 g/dL (3.4-5.0) Lipase 70 U/L (73-393) Urine Collection Type Unknown Urine Color Yellow Urine Clarity Clear Urine pH 6.5 (<5.0-8.0) Urine Specific [place] >=1.030 (1.000-1.030) Urine Protein Negative mg/dL (NEG-TRACE) Urine Glucose (UA) Negative mg/dL (NEG) Urine Ketones (Stick) 40 mg/dL (NEG) Urine Blood Negative (NEG) Urine Nitrite Negative (NEG) Urine Bilirubin Negative (NEG) Urine Urobilinogen Dipstick 1.0 mg/dL (0.2 mg/dL) Urine Leukocyte Esterase Negative (NEG) Urine RBC 0 /HPF (0-2) Urine WBC 0 /HPF (0-4) Urine Squamous Epithelial Cells Occ /LPF Urine Bacteria 0 /HPF (0-FEW) Urine Opiates Screen Neg (NEG) Urine Methadone Screen Neg (NEG) Urine Barbiturates Neg (NEG) Urine Phencyclidine Screen Neg (NEG) Urine Amphetamine/Methamphetamine Neg (NEG) Urine Benzodiazepines Screen Neg (NEG) Urine Cocaine Screen Neg (NEG) Urine Cannabinoids Screen Neg (NEG) Urine Ethyl Alcohol Neg (NEG) Images Images CT abdomen/pelvis: Lower chest: No consolidation or pleural effusion. Abdomen and pelvis: Mild hepatic steatosis. The spleen, adrenal glands, pancreas and gallbladder are unremarkable. No biliary ductal dilatation. No hydronephrosis. No renal calculi. Normal urinary bladder. Normal appendix. No evidence of bowel obstruction. No pathologic ly mphadenopathy. No ascites. 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 No anterolisthesis. Impression: 1. No acute abdominal or pelvic pathology. RUQ US: Liver is increased in echogenicity. Right hepatic lobe measures 12 cm. Portal flow is hepatopedal. Gallbladder has an unremarkable appearance. Common bile duct measures 3 mm in diameter. Visualized pancreas not well seen due to overlying bowel gas. The right kidney measures 10.3 x 5.8 x 5.2 cm. No hydronephrosis. Visualized portions of the aorta and IVC have normal caliber. IMPRESSION: 1. Increased hepatic echotexture, may indicate steatosis. VTE Prophylaxis Ordered VTE Prophylaxis Devices: No VTE Pharmacological Prophylaxi: No Assessment/Plan Assessment/Plan A/P: Abdominal pain -seems to be alcohol related gastritis acid reflux. Abnormal EKG: appears to be early repolarization. Cardiology consulted. Right side abdominal pain - hepatic steatosis per sono. Reports 12 beers weekly with no recreational drug use Mild Rhabdmyolysis and dehydration - will give IVF FEN - NPO PPX - ambulatory FULL CODE Dispo - observation Justifications for Admission Other Justification ERICKA ARAGON MD Oct 08, 2020 07:00
--- NOTE | 2020-10-08 08:50 | EKG ---
[facility] [address] [place] [address] Test Date: 2020-10-08 Test Time: 08:50:24 Pat Name: TATIANA HAHN Department: Room: 263 1 Gender: M Translational Specialist: : [id number] Requested By: NYA SINGLETON Order Number: [id number] Reading MD: Measurements Intervals [place] Rate: 49 P: 30 ND: 158 QRS: 36 QRSD: 88 T: 31 QT: 500 QTc: 455 Interpretive Statements SINUS BRADYCARDIA QRS(T) CONTOUR ABNORMALITY CONSIDER INFERIOR MYOCARDIAL DAMAGE POSSIBLY ABNORMAL ECG RI6.01 Compared to ECG 10/07/2020 23:46:36 Sinus rhythm no longer present
[2020-10-08 09:06] LABS: CHOLESTEROL/HDL RATIO 4.1
[2020-10-08 11:00] VITALS: BP 113/64
--- NOTE | 2020-10-08 11:56 | PDOC2 ---
NYA SINGLETON BOX [employer] 10/08/20 1156: CARDIAC CONSULT DATE OF CONSULT Date of Consult DATE: 10/08/20 TIME: 11:30 REASON FOR CONSULT Reason for Consult: RUQ pain, abnormal q waves REFERRING PHYSICIAN Referring Physician: [facility] SOURCE Source: Chart review, Patient HISTORY OF PRESENT ILLNESS HISTORY OF PRESENT ILLNESS This is a pleasant 25 yo male admitted for complains of right side abdominal pain. 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 No pain relief with opioids or NSAIDs. Consult is for q waves in the inferior leads of the EKG. Denies any chest pain, SOA. Had a little nausea but no vomiting. No diarrhea and no fever or chills. No childhood heart disease. He does not take any home medications. No recent falls or injury. PAST MEDICAL HISTORY Past Medical History No pertinent history PAST SURGICAL HISTORY Past Surgical History: No pertinent history FAMILY HISTORY Family History noncontributory SOCIAL HISTORY Smoke: No Drugs: None Lives: with Family CURRENT MEDICATIONS CURRENT MEDICATIONS Current Medications Medications (Trade) Dose Ordered Sig/Radha Route PRN Reason Start Time Stop Time Status Last Admin Dose Admin Sodium Chloride 1,000 ml @ 100 mls/hr Q10H IV 10/07/20 23:30 10/08/20 09:29 DC 10/07/20 23:37 Hydromorphone HCl (Dilaudid) 1 mg 1X ONCE IVP 10/07/20 23:30 10/07/20 23:31 DC 10/07/20 23:37 Ondansetron HCl (Zofran) 4 mg 1X ONCE IVP 10/07/20 23:30 10/07/20 23:31 DC 10/07/20 23:37 Iohexol (Omnipaque 300 Mg/ml) 75 ml 1X ONCE IV 10/07/20 23:45 10/07/20 23:46 DC 10/07/20 00:45 Ketorolac Tromethamine (Toradol 15mg Vial) 15 mg 1X ONCE IVP 10/08/20 03:15 10/08/20 03:16 DC 10/08/20 04:14 Dicyclomine HCl (Bentyl) 10 mg PRN Q4HRS PRN PO ABDOMINAL PAIN 10/08/20 06:15 10/08/20 09:18 ALLERGIES ALLERGIES: Coded Allergies: Penicillins (Verified Allergy, Unknown, 10/05/20) ROS Review of System 14 point ROS evaluated with pertinent positives noted per HPI PHYSICAL EXAM General: Alert, Oriented X3, Cooperative, No acute distress HEENT: Atraumatic, Mucous membr. moist/pink Lungs: Clear to auscultation, Normal air movement Heart: Regular rate (SR/SB), Normal S1, Normal S2, No murmurs Abdomen: Other (right side abdominal tenderness) Extremities: No cyanosis, No edema Skin: No breakdown, No significant lesion Neuro: Normal speech, Sensation intact Psych/Mental Status: Mental status NL, Mood NL MUSCULOSKELETAL: Full range of motion without pain VITALS/I&O VITALS/I&O: Vital Signs Date Time Temp Pulse Resp B/P (MAP) Pulse Ox O2 Delivery O2 Flow Rate FiO2 10/08/20 11:00 97.7 52 18 113/64 (80) 100 Room Air 97.7 I & O 10/07/20 10/07/20 10/08/20 15:00 23:00 07:00 Intake Total 1000 ml Balance 1000 ml LABS Lab: Laboratory Tests Test 10/07/20 23:00 10/08/20 02:20 10/08/20 05:04 White Blood Count 8.0 x10^3/uL (4.0-11.0) Red Blood Count 4.60 x10^6/uL (4.30-5.70) Hemoglobin 14.9 g/dL (13.0-17.5) Hematocrit 42.1 % (39.0-53.0) Mean Corpuscular Volume 91 fL (79-100) Mean Corpuscular Hemoglobin 32 pg (25-35) Mean Corpuscular Hemoglobin Concent 35 g/dL (31-37) Red Cell Distribution Width 12.7 % (11.5-14.5) Platelet Count 182 x10^3/uL (140-400) Neutrophils (%) (Auto) 64 % (31-73) Lymphocytes (%) (Auto) 24 % (24-48) Monocytes (%) (Auto) 11 % (0-9) H Eosinophils (%) (Auto) 1 % (0-3) Basophils (%) (Auto) 1 % (0-3) Neutrophils # (Auto) 5.2 x10^3/uL (1.8-7.7) Lymphocytes # (Auto) 1.9 x10^3/uL (1.0-4.8) Monocytes # (Auto) 0.9 x10^3/uL (0.0-1.1) Eosinophils # (Auto) 0.1 x10^3/uL (0.0-0.7) Basophils # (Auto) 0.0 x10^3/uL (0.0-0.2) Sodium Level 142 mmol/L (136-145) Potassium Level 3.7 mmol/L (3.5-5.1) Chloride Level 105 mmol/L (98-107) Carbon Dioxide Level 30 mmol/L (21-32) Anion Gap 7 (6-14) Blood Urea Nitrogen 20 mg/dL (8-26) Creatinine 1.2 mg/dL (0.7-1.3) Estimated GFR (Cockcroft-Gault) 75.0 Glucose Level 94 mg/dL (70-99) Calcium Level 8.7 mg/dL (8.5-10.1) Total Bilirubin 0.9 mg/dL (0.2-1.0) Direct Bilirubin 0.2 mg/dL (0.0-0.2) Aspartate Amino Transferase (AST) 50 U/L (15-37) H Alanine Aminotransferase (ALT) 93 U/L (16-63) H Alkaline Phosphatase 72 U/L (46-116) Lactate Dehydrogenase 215 U/L (85-227) Creatine Kinase 679 U/L (39-308) H Troponin I Quantitative < 0.017 ng/mL (0.000-0.055) < 0.017 ng/mL (0.000-0.055) Total Protein 7.3 g/dL (6.4-8.2) Albumin 4.4 g/dL (3.4-5.0) Lipase 70 U/L (73-393) L Urine Collection Type Unknown Urine Color Yellow Urine Clarity Clear Urine pH 6.5 (<5.0-8.0) Urine Specific [place] >=1.030 (1.000-1.030) Urine Protein Negative mg/dL (NEG-TRACE) Urine Glucose (UA) Negative mg/dL (NEG) Urine Ketones (Stick) 40 mg/dL (NEG) Urine Blood Negative (NEG) Urine Nitrite Negative (NEG) Urine Bilirubin Negative (NEG) Urine Urobilinogen Dipstick 1.0 mg/dL (0.2 mg/dL) Urine Leukocyte Esterase Negative (NEG) Urine RBC 0 /HPF (0-2) Urine WBC 0 /HPF (0-4) Urine Squamous Epithelial Cells Occ /LPF Urine Bacteria 0 /HPF (0-FEW) Urine Opiates Screen Neg (NEG) Urine Methadone Screen Neg (NEG) Urine Barbiturates Neg (NEG) Urine Phencyclidine Screen Neg (NEG) Urine Amphetamine/Methamphetamine Neg (NEG) Urine Benzodiazepines Screen Neg (NEG) Urine Cocaine Screen Neg (NEG) Urine Cannabinoids Screen Neg (NEG) Urine Ethyl Alcohol Neg (NEG) Triglycerides Level 71 mg/dL (0-150) Cholesterol Level 172 mg/dL (0-200) LDL Cholesterol, Calculated 116 mg/dL (0-100) H VLDL Cholesterol, Calculated 14 mg/dL (0-40) Non-HDL Cholesterol Calculated 130 mg/dL (0-129) H HDL Cholesterol 42 mg/dL (40-60) Cholesterol/HDL Ratio 4.1 Laboratory Tests 10/07/20 23:00 Laboratory Tests 10/07/20 23:00 ASSESSMENT/PLAN ASSESSMENT/PLAN 1. Abnormal EKG: appears to be early repolarization with SB 2. Asymptomatic SB: lowest mid40s no pauses 3. Right side abdominal pain: notable for hepatic steatosis per sono. Reports 12 beers weekly with no recreational drug use 4. Rhabdmyolysis and dehydration Recommendations 1. TTE, FLP today. Doubt any cardiac issues 2. IVF has been given LAVELLE ALEXANDER MD 10/08/20 1822: NYA SINGLETON APRN Oct 08, 2020 11:56 LAVELLE ALEXANDER MD Oct 08, 2020 18:22
--- NOTE | 2020-10-08 14:18 | NUR ---
SS following for discharge planning. SS reviewed pt chart and discussed with pt RN. Pt is from home and is currently on room air. Cardiology following. ECHO today. Probable discharge to home later today. SS will continue to follow for discharge planning.
--- NOTE | 2020-10-08 14:19 | CARD ---
MR#: [id number] Date of Study: 10/08/2020 Ordering Physician: NYA SINGLETON, Referring Physician: NYA SINGLETON Tech: Leslie Woodruff [facility] APPROVED REPORT EXAM: Two-dimensional and M-mode echocardiogram with Doppler and color Doppler. Other Information Quality : AverageHR: 44bpm Rhythm : NSR INDICATION Bradycardia 2D DIMENSIONS RVDd3.5 (2.9-3.5cm)Left Atrium(2D)4.1 (1.6-4.0cm) IVSd1.0 (0.7-1.1cm)Aortic Root(2D)3.8 (2.0-3.7cm) LVDd5.3 (3.9-5.9cm)LVOT Diameter2.5 (1.8-2.4cm) PWd1.0 (0.7-1.1cm)LVDs2.7 (2.5-4.0cm) FS (%) 49.3 %SV107.5 ml LVEF(%)80.3 (>50%) Aortic Valve AoV Peak Mihir.130.2cm/sAoV VTI32.8cm AO Peak GR.6.8mmHgLVOT Peak Mihir.88.8cm/s AO Mean GR.3mmHgAVA (VMAX)3.35cm2 Mitral Valve MV E Vgzrmcds22.0cm/sMV DECEL [id number] MV A Tgqxikot86.7cm/sE/A Ratio1.3 Pulmonary Vein S1 Uguxgmll12.5cm/sD2 Vmaypwpo47.4cm/s PVa [id number] LEFT VENTRICLE The left ventricle is normal size. There is normal left ventricular wall thickness. The left ventricu lar systolic function is normal. Estijmated ejection fraction 55-60%. There is normal LV segmental w all motion. The left ventricular diastolic function and filling is normal for age. RIGHT VENTRICLE The right ventricle is normal size. There is normal right ventricular wall thickness. The right ventr icular systolic function is normal. ATRIA The left atrium size is normal. The right atrium size is normal. The interatrial septum is intact wit h no evidence for an atrial septal defect or patent foramen ovale as noted on 2-D or Doppler imaging. AORTIC VALVE The aortic valve is normal in structure and function. Doppler and Color Flow revealed no significant aortic regurgitation. There is no significant aortic valvular stenosis. MITRAL VALVE The mitral valve is normal in structure and function. There is no evidence of mitral valve prolapse. There is no mitral valve stenosis. Doppler and Color Flow revealed no mitral valve regurgitation note d. TRICUSPID VALVE The tricuspid valve is normal in structure and function. Doppler and Color Flow revealed no tricuspid valve regurgitation noted. There is no tricuspid valve stenosis. PULMONIC VALVE The pulmonary valve is normal in structure and function. Doppler and Color Flow revealed no pulmonic valvular regurgitation. GREAT VESSELS The aortic root is normal in size. The ascending aorta is normal in size. The IVC is normal in size a nd collapses >50% with inspiration. PERICARDIAL EFFUSION There is no evidence of significant pericardial effusion. Critical Notification Critical Value: No <Conclusion> The left ventricular systolic function is normal. Estijmated ejection fraction 55-60%. There is normal LV segmental wall motion. There is no evidence of significant pericardial effusion. Signed by : Josh Rogers, Electronically Approved : 10/08/2020 14:18:58
[2020-10-08] MEDS ORDERED: MAGNESIUM CITRATE 296 ML SOLUTION. PO ONE (14:45)
[2020-10-08] MEDS ORDERED: FAMOTIDINE 20 MG TABLET. PO ONE (14:45)
[2020-10-08 15:00] VITALS: BP 121/85
[2020-10-08] MEDS ORDERED: DICY10CA3 PO (15:10)
[2020-10-08] MEDS ORDERED: CALC1TAB21 PO (15:10)
[2020-10-08] MEDS ORDERED: FAMO-63 PO (15:10)
[2020-10-08] MEDS ORDERED: METR-34 PO (15:36)
[2020-10-08] MEDS ORDERED: PANT40TA77 PO (15:36)
[2020-10-08] MEDS ORDERED: CLAR-7 PO (15:36)
--- NOTE | 2020-10-08 15:47 | PDOC3 ---
Discharge Summary Visit Information Date of Admission: Oct 08, 2020 Date of Discharge: Oct 08, 2020 Admitting Diagnosis: Intractable abdominal pain Final Diagnosis Problems Medical Problems: (1) EKG abnormalities Status: Acute (2) Elevated CK Status: Acute (3) Elevated liver function tests Status: Acute (4) Intractable abdominal pain Status: Acute Brief Hospital Course Allergies Allergies Coded Allergies Type Severity Reaction Last Updated Verified Penicillins Allergy Unknown 10/05/20 Yes Vital Signs Vital Signs Date Time Temp Pulse Resp B/P (MAP) Pulse Ox O2 Delivery O2 Flow Rate FiO2 10/08/20 11:00 97.7 52 18 113/64 (80) 100 Room Air 97.7 Lab Results Laboratory Tests Test 10/07/20 23:00 10/08/20 02:20 10/08/20 05:04 White Blood Count 8.0 x10^3/uL (4.0-11.0) Red Blood Count 4.60 x10^6/uL (4.30-5.70) Hemoglobin 14.9 g/dL (13.0-17.5) Hematocrit 42.1 % (39.0-53.0) Mean Corpuscular Volume 91 fL (79-100) Mean Corpuscular Hemoglobin 32 pg (25-35) Mean Corpuscular Hemoglobin Concent 35 g/dL (31-37) Red Cell Distribution Width 12.7 % (11.5-14.5) Platelet Count 182 x10^3/uL (140-400) Neutrophils (%) (Auto) 64 % (31-73) Lymphocytes (%) (Auto) 24 % (24-48) Monocytes (%) (Auto) 11 % (0-9) Eosinophils (%) (Auto) 1 % (0-3) Basophils (%) (Auto) 1 % (0-3) Neutrophils # (Auto) 5.2 x10^3/uL (1.8-7.7) Lymphocytes # (Auto) 1.9 x10^3/uL (1.0-4.8) Monocytes # (Auto) 0.9 x10^3/uL (0.0-1.1) Eosinophils # (Auto) 0.1 x10^3/uL (0.0-0.7) Basophils # (Auto) 0.0 x10^3/uL (0.0-0.2) Sodium Level 142 mmol/L (136-145) Potassium Level 3.7 mmol/L (3.5-5.1) Chloride Level 105 mmol/L (98-107) Carbon Dioxide Level 30 mmol/L (21-32) Anion Gap 7 (6-14) Blood Urea Nitrogen 20 mg/dL (8-26) Creatinine 1.2 mg/dL (0.7-1.3) Estimated GFR (Cockcroft-Gault) 75.0 Glucose Level 94 mg/dL (70-99) Calcium Level 8.7 mg/dL (8.5-10.1) Total Bilirubin 0.9 mg/dL (0.2-1.0) Direct Bilirubin 0.2 mg/dL (0.0-0.2) Aspartate Amino Transf (AST/SGOT) 50 U/L (15-37) Alanine Aminotransferase (ALT/SGPT) 93 U/L (16-63) Alkaline Phosphatase 72 U/L (46-116) Lactate Dehydrogenase 215 U/L (85-227) Creatine Kinase 679 U/L (39-308) Troponin I Quantitative < 0.017 ng/mL (0.000-0.055) < 0.017 ng/mL (0.000-0.055) Total Protein 7.3 g/dL (6.4-8.2) Albumin 4.4 g/dL (3.4-5.0) Lipase 70 U/L (73-393) Urine Collection Type Unknown Urine Color Yellow Urine Clarity Clear Urine pH 6.5 (<5.0-8.0) Urine Specific [place] >=1.030 (1.000-1.030) Urine Protein Negative mg/dL (NEG-TRACE) Urine Glucose (UA) Negative mg/dL (NEG) Urine Ketones (Stick) 40 mg/dL (NEG) Urine Blood Negative (NEG) Urine Nitrite Negative (NEG) Urine Bilirubin Negative (NEG) Urine Urobilinogen Dipstick 1.0 mg/dL (0.2 mg/dL) Urine Leukocyte Esterase Negative (NEG) Urine RBC 0 /HPF (0-2) Urine WBC 0 /HPF (0-4) Urine Squamous Epithelial Cells Occ /LPF Urine Bacteria 0 /HPF (0-FEW) Urine Opiates Screen Neg (NEG) Urine Methadone Screen Neg (NEG) Urine Barbiturates Neg (NEG) Urine Phencyclidine Screen Neg (NEG) Urine Amphetamine/Methamphetamine Neg (NEG) Urine Benzodiazepines Screen Neg (NEG) Urine Cocaine Screen Neg (NEG) Urine Cannabinoids Screen Neg (NEG) Urine Ethyl Alcohol Neg (NEG) Triglycerides Level 71 mg/dL (0-150) Cholesterol Level 172 mg/dL (0-200) LDL Cholesterol, Calculated 116 mg/dL (0-100) VLDL Cholesterol, Calculated 14 mg/dL (0-40) Non-HDL Cholesterol Calculated 130 mg/dL (0-129) HDL Cholesterol 42 mg/dL (40-60) Cholesterol/HDL Ratio 4.1 Laboratory Tests Test 10/07/20 23:00 10/08/20 02:20 10/08/20 05:04 White Blood Count 8.0 x10^3/uL (4.0-11.0) Red Blood Count 4.60 x10^6/uL (4.30-5.70) Hemoglobin 14.9 g/dL (13.0-17.5) Hematocrit 42.1 % (39.0-53.0) Mean Corpuscular Volume 91 fL (79-100) Mean Corpuscular Hemoglobin 32 pg (25-35) Mean Corpuscular Hemoglobin Concent 35 g/dL (31-37) Red Cell Distribution Width 12.7 % (11.5-14.5) Platelet Count 182 x10^3/uL (140-400) Neutrophils (%) (Auto) 64 % (31-73) Lymphocytes (%) (Auto) 24 % (24-48) Monocytes (%) (Auto) 11 % (0-9) Eosinophils (%) (Auto) 1 % (0-3) Basophils (%) (Auto) 1 % (0-3) Neutrophils # (Auto) 5.2 x10^3/uL (1.8-7.7) Lymphocytes # (Auto) 1.9 x10^3/uL (1.0-4.8) Monocytes # (Auto) 0.9 x10^3/uL (0.0-1.1) Eosinophils # (Auto) 0.1 x10^3/uL (0.0-0.7) Basophils # (Auto) 0.0 x10^3/uL (0.0-0.2) Sodium Level 142 mmol/L (136-145) Potassium Level 3.7 mmol/L (3.5-5.1) Chloride Level 105 mmol/L (98-107) Carbon Dioxide Level 30 mmol/L (21-32) Anion Gap 7 (6-14) Blood Urea Nitrogen 20 mg/dL (8-26) Creatinine 1.2 mg/dL (0.7-1.3) Estimated GFR (Cockcroft-Gault) 75.0 Glucose Level 94 mg/dL (70-99) Calcium Level 8.7 mg/dL (8.5-10.1) Total Bilirubin 0.9 mg/dL (0.2-1.0) Direct Bilirubin 0.2 mg/dL (0.0-0.2) Aspartate Amino Transf (AST/SGOT) 50 U/L (15-37) Alanine Aminotransferase (ALT/SGPT) 93 U/L (16-63) Alkaline Phosphatase 72 U/L (46-116) Lactate Dehydrogenase 215 U/L (85-227) Creatine Kinase 679 U/L (39-308) Troponin I Quantitative < 0.017 ng/mL (0.000-0.055) < 0.017 ng/mL (0.000-0.055) Total Protein 7.3 g/dL (6.4-8.2) Albumin 4.4 g/dL (3.4-5.0) Lipase 70 U/L (73-393) Urine Collection Type Unknown Urine Color Yellow Urine Clarity Clear Urine pH 6.5 (<5.0-8.0) Urine Specific [place] >=1.030 (1.000-1.030) Urine Protein Negative mg/dL (NEG-TRACE) Urine Glucose (UA) Negative mg/dL (NEG) Urine Ketones (Stick) 40 mg/dL (NEG) Urine Blood Negative (NEG) Urine Nitrite Negative (NEG) Urine Bilirubin Negative (NEG) Urine Urobilinogen Dipstick 1.0 mg/dL (0.2 mg/dL) Urine Leukocyte Esterase Negative (NEG) Urine RBC 0 /HPF (0-2) Urine WBC 0 /HPF (0-4) Urine Squamous Epithelial Cells Occ /LPF Urine Bacteria 0 /HPF (0-FEW) Urine Opiates Screen Neg (NEG) Urine Methadone Screen Neg (NEG) Urine Barbiturates Neg (NEG) Urine Phencyclidine Screen Neg (NEG) Urine Amphetamine/Methamphetamine Neg (NEG) Urine Benzodiazepines Screen Neg (NEG) Urine Cocaine Screen Neg (NEG) Urine Cannabinoids Screen Neg (NEG) Urine Ethyl Alcohol Neg (NEG) Triglycerides Level 71 mg/dL (0-150) Cholesterol Level 172 mg/dL (0-200) LDL Cholesterol, Calculated 116 mg/dL (0-100) VLDL Cholesterol, Calculated 14 mg/dL (0-40) Non-HDL Cholesterol Calculated 130 mg/dL (0-129) HDL Cholesterol 42 mg/dL (40-60) Cholesterol/HDL Ratio 4.1 Brief Hospital Course Mr Patricio is a 25 yo male pakistani speaking only who present to ED c/o right side abdominal pain and epigastric pain. In ED noted has been constipated early satiety and some right upper quadrant epigastric pain initially improved with the eating and then pain comes afterwards. He does drink moderately heavily 12 beers. No chest pain, SOA. Had a little nausea but no vomiting. No diarrhea and no fever or chills. No history of heart disease heart disease. He does not take any home medications. No recent falls or injury. He is up-to-date on influenza vaccinations and hepatitis A and B. No family history of alpha-1 antitrypsin or iron overload disorders. ED physician concerned about q waves in inferior leads of the EKG. CT abdomen pelvis no acute findings but hepatic steatosis. Right upper quadrant ultrasound with fatty liver. Labs with WBC 8, Hb 14.9, platelets 182, LDH 215, troponin 0, CK 679, AST 50, ALT 93, NA 142, K3.7, BUN 20, CR 1.2, glucose 94. Admitted for observation with cardiology consultation. Symptoms improved with Pepcid GI cocktail and magnesium citrate. Given IV fluids. Consults: Cardiology Echocardiogram: The left ventricular systolic function is normal. Estijmated ejection fraction 55-60%. There is normal LV segmental wall motion. There is no evidence of significant pericardial effusion. CT abdomen/pelvis: Lower chest: No consolidation or pleural effusion. Abdomen and pelvis: Mild hepatic steatosis. The spleen, adrenal glands, pancreas and gallbladder are unremarkable. No biliary ductal dilatation. No hydronephrosis. No renal calculi. Normal urinary bladder. Normal appendix. No evidence of bowel obstruction. No pathologic lymphadenopathy. No ascites. 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 No anterolisthesis. Impression: 1. No acute abdominal or pelvic pathology. RUQ US: Liver is increased in echogenicity. Right hepatic lobe measures 12 cm. Portal flow is hepatopedal. Gallbladder has an unremarkable appearance. Common bile duct measures 3 mm in diameter. Visualized pancreas not well seen due to overlying bowel gas. The right kidney measures 10.3 x 5.8 x 5.2 cm. No hydronephrosis. Visualized portions of the aorta and IVC have normal caliber. IMPRESSION: 1. Increased hepatic echotexture, may indicate steatosis. Problem list: Abdominal pain -seems to be alcohol related gastritis acid reflux. Abnormal EKG: appears to be early repolarization. Cardiology consulted. Right side abdominal pain - hepatic steatosis per sono. Reports 12 beers weekly with no recreational drug use Mild Rhabdmyolysis and dehydration - given IVF Plan: Cut back on alcohol. Take Psyllium (Metamucil) for constipation Take Pepcid twice daily for 30 days. If symptoms persist take Omeprazole or Rabeprazole and go to lab and have urease breath testing to test for H. pylori - if positive I have provided prescriptions to fill only in the event that you are positive for clarithromycin metronidazole and pantoprazole for 14 days Greater than 100 minutes spent on discharge and admit same day Discharge Information Condition at Discharge: Improved Follow Up: Weeks Disposition/Orders: D/C to Home Scheduled Clarithromycin (Clarithromycin) 500 Mg Tablet, 1 TAB PO BID for H. pylori for 14 Days, #28 Prescribed by: ERICKA ARAGON MD on 10/08/20 1536 Famotidine (Pepcid) 20 Mg Tablet, 20 MG PO BID for ACID reflux for 30 Days, #60 Prescribed by: ERICKA ARAGON MD on 10/08/20 1510 Metronidazole (Metronidazole) 500 Mg Tablet, 1 TAB PO TID for H pylori for 14 Days, #42 Ref 0 Prescribed by: ERICKA ARAGON MD on 10/08/20 1536 Pantoprazole Sodium (Protonix ) 40 Mg Tablet.dr, 40 MG PO BIDAC for H. Pylori for 14 Days, #28 Prescribed by: ERICKA ARAGON MD on 10/08/20 1536 Scheduled PRN Calcium Carbonate/Simethicone (Maalox Advanced Tab Chew) 1 Each Tab.chew, 1 EACH PO PRN BID PRN for CONSTIPATION for 30 Days, #30 Prescribed by: ERICKA ARAGON MD on 10/08/20 1510 Dicyclomine Hcl (Dicyclomine Hcl) 10 Mg Capsule, 10 MG PO PRN Q4HRS PRN for ABDOMINAL PAIN for 30 Days, #60 Ref 3 Prescribed by: ERICKA ARAGON MD on 10/08/20 1510 Justicifation of Admission Dx: Justifications for Admission: Justification of Admission Dx: Yes ERICKA ARAGON MD Oct 08, 2020 15:47
--- NOTE | 2020-10-08 17:08 | NUR ---
Discharge Note: [facility] Discharge instructions and discharge home medications reviewed with Patient and a copy given. All questions have been answered and understanding verbalized. [employer] phone was used during this discharge teaching. The following instructions and handouts were given: Protonix, pepcid, alcholic gastritis, abdominal pain Patient discharged to home with self care via private vehicle. IV out, monitor off.
== END 2020-10-08 17:03 | disposition home or self-care (01) ==
LOC: ER 21:27 → 2 SOUTH 10-08 03:51
PROVIDERS: ADMIT Internal Medicine; ATTEND Internal Medicine
DX: R94.31 Abnormal electrocardiogram [ECG] [EKG] (principal); R79.89 Other specified abnormal findings of blood chemistry; R10.9 Unspecified abdominal pain; E86.0 Dehydration; K76.0 Fatty (change of) liver, not elsewhere classified; K29.70 Gastritis, unspecified, without bleeding; K21.9 Gastro-esophageal reflux disease without esophagitis; K59.00 Constipation, unspecified; E78.00 Pure hypercholesterolemia, unspecified; M62.82 Rhabdomyolysis; Z79.899 Other long term (current) drug therapy
CPT/HCPCS: 36415; 74177; 76705; 80048; 80061; 80076; 80307; 81001; 82550; 82728; 83540; 83550; 83615; 83690; 84443; 84484; 85025; 93005; 93306; 96361; 96374; 96375; 99285; G0378; J1170; J1885; J2405; J7030; Q9967; G0379